=== PATIENT | male | born 1995 | race Caucasian/White ===

== ENCOUNTER 2017-06-07 14:09 | Emergency (ER) | payer OTHER ==
[2017-06-07] MEDS ORDERED: AMOXICILLIN500 MG PO (19:34)
[2017-06-07] MEDS ORDERED: ZOFRAN4 MG PO (19:34)
[2017-06-07] MEDS ORDERED: PERCOCET 5/31 TABLET PO (19:34)
== END 2017-06-07 20:45 | disposition home or self-care (01) ==
LOC: TRA 14:09
DX: S02.32XA Fracture of orbital floor, left side, initial encounter for closed fracture (principal); S06.0X0A Concussion without loss of consciousness, initial encounter; W16.42XA Fall into unspecified water causing other injury, initial encounter; Y93.16 Activity, rowing, canoeing, kayaking, rafting and tubing; Y92.828 Other wilderness area as the place of occurrence of the external cause
CPT/HCPCS: 70450; 70486; 99281; 99285; J2270; J2405